=== PATIENT | female | born 1990 | race Two or more races ===

== ENCOUNTER 2019-03-22 20:15 | Outpatient (CLI) | payer SELFPAY | END 2019-03-22 21:43 | disposition home or self-care (01) | LOC: OBT 20:15 → L-D 20:18 → OBT 21:43 | DX: O36.8130 Decreased fetal movements, third trimester, not applicable or unspecified (principal); Z3A.36 36 weeks gestation of pregnancy | CPT/HCPCS: 76818 ==

== ENCOUNTER 2019-03-31 04:50 | Inpatient (IN) | payer SELFPAY, MEDICAID ==
[2019-03-31] MEDS ORDERED: MISOPROSTOL 200 MCG TAB PR ×2 (06:00→14:00)
[2019-03-31] MEDS ORDERED: CARBOPROST 250 MCG INJ IM ×2 (06:00→14:00)
[2019-03-31] MEDS ORDERED: METHYLERGONOVINE 0.2 MG INJ IM ×2 (06:00→14:00)
[2019-03-31 06:04] LABS: ADD MAN DIFF? NO
[2019-03-31 06:08] LABS: WHITE BLOOD COUNT 7.4 10^3/ul (4.8-10.8)
[2019-03-31 06:08] LABS: BASOPHILS % 0.3 % (0.0-2.0); EOSINOPHILS % 0.4 % (0.0-7.0); HEMATOCRIT 33.7 % (37.0-47.0); HEMOGLOBIN 11.1 g/dl (12.0-16.0); LYMPHOCYTES # 1.2 10^3/ul (0.8-2.9); LYMPHOCYTES % 15.6 % (15.0-51.0); MEAN CORPUSCULAR HGB CONC 32.9 g/dl (32.0-37.0); MEAN PLATELET VOLUME 11.6 fl (7.4-10.4); MONOCYTE # 0.5 10^3/ul (0.3-0.9); MONOCYTES % 6.6 % (0.0-11.0); NEUTROPHIL # 5.7 10^3/ul (1.6-7.5); NEUTROPHILS % 76.2 % (39.0-77.0); PLATELET COUNT 164 10^3/UL (140-415); RED BLOOD COUNT 3.83 10^6/ul (4.20-5.40); RED CELL DISTRIBUTION WIDTH 14.7 % (11.5-14.5)
[2019-03-31 06:30] LABS: INR 0.84; PROTIME 11.6 Sec (11.9-14.9); PT RATIO 0.9
[2019-03-31 06:31] LABS: PARTIAL THROMBOPLASTIN TIME 25.8 Sec (23.0-35.0)
[2019-03-31] MEDS: LACTATED RINGER'S 1,000 ML IV ×3 (06:42→23:20)
[2019-03-31] MEDS: AZITHROMYCIN 500MG/NS (PMX) 250 ML IVPB (08:30)
[2019-03-31] MEDS ORDERED: morphine SULFATE/PF (10 MG/10 ML) INJ (08:42)
[2019-03-31] MEDS ORDERED: FENTAnyl 50 MCG/ML VIAL (08:42)
[2019-03-31] MEDS ORDERED: DEXAMETHASONE 4 MG/ML 1 ML INJ (08:55)
[2019-03-31] MEDS ORDERED: ONDANSETRON 4 MG INJ (08:55)
[2019-03-31] MEDS ORDERED: FAMOTIDINE 20 MG INJ (08:56)
[2019-03-31] MEDS ORDERED: DIPHENHYDRAMINE 50 MG INJ (08:56)
[2019-03-31] MEDS ORDERED: NALOXONE (0.4 MG/ML) INJ IV (09:00)
[2019-03-31] MEDS ORDERED: ONDANSETRON 4 MG INJ IV (09:00)
[2019-03-31] MEDS ORDERED: HYDROmorphONE 0.5 MG/0.5 ML SYG IV ×2 (09:00)
[2019-03-31] MEDS ORDERED: KETOROLAC 30 MG INJ IV (09:00)
[2019-03-31] MEDS ORDERED: DIPHENHYDRAMINE 50 MG INJ IV (09:00)
[2019-03-31] MEDS ORDERED: ZOLPIDEM 5 MG TAB PO (09:00)
[2019-03-31] MEDS ORDERED: PHENYLephrine (100 MCG/ML) 10ML SYG (09:12)
[2019-03-31] MEDS ORDERED: PROPOFOL 20 ML (09:12)
[2019-03-31] MEDS ORDERED: OXYTOCIN 30 UNITS/LR 500 ML IV ×3 (09:12→14:00)
[2019-03-31] MEDS ORDERED: MIDAZOLAM 1 MG/ML 2 ML INJ (09:30)
[2019-03-31] MEDS: CEFAZOLIN 2 GM/50 ML (PMX) 50 ML IVPB (10:54)
[2019-03-31] MEDS: OXYTOCIN 30 UNITS/LR 500 ML IV ×3 (10:55→14:47)
[2019-03-31] MEDS ORDERED: OXYCODONE/ACETAMINOPHEN (5/325) TAB PO (14:00)
[2019-03-31] MEDS ORDERED: LANOLIN HPA 1 PKT TOP (14:00)
[2019-03-31 16:11] LABS: RAPID PLASMA REAGIN NONREACTIVE (NR)
[2019-03-31] MEDS: SENNA/DOCUSATE NA (8.6MG/50MG) TAB PO (21:00)
[2019-04-01 05:36] LABS: ADD MAN DIFF? NO
[2019-04-01 05:43] LABS: WHITE BLOOD COUNT 9.7 10^3/ul (4.8-10.8)
[2019-04-01 05:43] LABS: BASOPHILS % 0.2 % (0.0-2.0); EOSINOPHILS % 0.2 % (0.0-7.0); HEMATOCRIT 28.8 % (37.0-47.0); HEMOGLOBIN 9.4 g/dl (12.0-16.0); LYMPHOCYTES # 1.1 10^3/ul (0.8-2.9); LYMPHOCYTES % 11.5 % (15.0-51.0); MEAN CORPUSCULAR HEMOGLOBIN 29.1 pg (29.0-33.0); MEAN CORPUSCULAR HGB CONC 32.6 g/dl (32.0-37.0); MEAN CORPUSCULAR VOLUME 89.2 fl (82.0-101.0); MEAN PLATELET VOLUME 11.7 fl (7.4-10.4); MONOCYTE # 0.6 10^3/ul (0.3-0.9); MONOCYTES % 5.8 % (0.0-11.0); NEUTROPHILS % 81.8 % (39.0-77.0); PLATELET COUNT 147 10^3/UL (140-415); RED BLOOD COUNT 3.23 10^6/ul (4.20-5.40); RED CELL DISTRIBUTION WIDTH 14.4 % (11.5-14.5)
[2019-04-01] MEDS: LACTATED RINGER'S 1,000 ML IV (07:30)
[2019-04-01] MEDS: SENNA/DOCUSATE NA (8.6MG/50MG) TAB PO ×2 (08:58→21:33)
[2019-04-01] MEDS: OXYCODONE/ACETAMINOPHEN (5/325) TAB PO (08:58)
[2019-04-01] MEDS: IBUPROFEN 800 MG TAB PO ×2 (13:53→21:37)
[2019-04-01] MEDS: FERROUS SULFATE (EC) 325 MG TAB PO (21:33)
[2019-04-02] MEDS: OXYCODONE/ACETAMINOPHEN (5/325) TAB PO (03:19)
[2019-04-02] MEDS: IBUPROFEN 800 MG TAB PO ×3 (05:46→22:35)
[2019-04-02] MEDS: SENNA/DOCUSATE NA (8.6MG/50MG) TAB PO ×2 (09:08→21:30)
[2019-04-02] MEDS: FERROUS SULFATE (EC) 325 MG TAB PO ×3 (09:08→21:30)
[2019-04-02] MEDS: MAGNESIUM HYDROXIDE 30ML CUP PO (21:30)
[2019-04-03] MEDS: IBUPROFEN 800 MG TAB PO ×2 (05:42→13:39)
[2019-04-03] MEDS: FERROUS SULFATE (EC) 325 MG TAB PO ×2 (09:39→12:20)
[2019-04-03] MEDS: SENNA/DOCUSATE NA (8.6MG/50MG) TAB PO (09:39)
[2019-04-03] MEDS: DIPHTH/TET/ACEL PERTUSS (ADULT) 0.5 ML VIAL IM* (09:41)
[2019-04-03] MEDS: OXYCODONE/ACETAMINOPHEN (5/325) TAB PO (12:22)
== END 2019-04-03 18:56 | disposition home or self-care (01) | DRG 788 ==
LOC: OBT 04:50 → PP1 04-01 20:25 → L-D 04:50 → OBT 05:36 → L-D 05:36 → MS1 15:29
PROVIDERS: Obstetrics & Gynecology
PROC: 10D00Z1 Extraction of Products of Conception, Low, Open Approach (ICD-10-PCS; principal; 2019-03-31)
DX: O65.5 Obstructed labor due to abnormality of maternal pelvic organs (principal); O34.211 Maternal care for low transverse scar from previous cesarean delivery; Z3A.38 38 weeks gestation of pregnancy; Z37.0 Single live birth
CPT/HCPCS: 85025; 85610; 85730; 86592; 86850; 86900; 86901; 88307; 90715; 99464